=== PATIENT | female | born 1990 | race Caucasian/White ===

== ENCOUNTER 2017-11-14 15:23 | Emergency (ER) | payer BC, OTHER ==
[2017-11-14 15:54] VITALS: BP 123/82
--- NOTE | 2017-11-14 16:07 | UC ---
General HPI - HPI Summary HPI Summary: Right thumb stuck by suture needle that was wrapped in vacuum clear bristle bar- - - History of Current Complaint Chief Complaint: UCWounds Stated Complaint: NEEDLE STICK EXPOSURE Time Seen by Provider: 11/14/17 15:33 Hx Obtained From: Patient Hx Last Menstrual Period: few months ago, in depo Onset/Duration: Sudden Onset, Lasting Days - 1 Timing: Constant Onset Severity: Mild Current Severity: None - Allergy/Home Medications Allergies/Adverse Reactions: Allergies Allergy/AdvReac Type Severity Reaction Status Date / Time Penicillins [PCN] Allergy Rash Verified 11/14/17 15:53 Home Medications: Home Medications Medroxyprogesterone Acetate (A [Depo-Provera] 400 mg IM MONTHLY 11/14/17 [ History Confirmed 11/14/17] PMH/Surg Hx/FS Hx/Imm Hx Previously Healthy: Yes - Surgical History Surgical History: Yes Surgery Procedure, Year, and Place: ectopic - Family History Known Family History: Positive: None - Social History Occupation: Employed Full-time Lives: With Family Alcohol Use: Occasionally Substance Use Type: None Smoking Status (MU): Light Every Day Tobacco Smoker Amount Used/How Often: 1/2 PPD - Immunization History Most Recent Influenza Vaccination: none Most Recent Tetanus Shot: unknown Review of Systems Constitutional: Negative Skin: Negative Eyes: Negative ENT: Negative Respiratory: Negative Cardiovascular: Negative Gastrointestinal: Negative Genitourinary: Negative Motor: Negative Neurovascular: Negative Musculoskeletal: Negative Neurological: Negative Psychological: Negative Is Patient Immunocompromised?: No All Other Systems Reviewed And Are Negative: Yes Physical Exam Triage Information Reviewed: Yes Appearance: Well-Appearing, No Pain Distress, Well-Nourished Vital Signs: Initial Vital Signs Temp 98.1 F 11/14/17 15:49 Pulse 95 11/14/17 15:49 Resp 16 11/14/17 15:49 BP 123/82 11/14/17 15:49 Pulse Ox 100 11/14/17 15:49 Vital Signs Reviewed: Yes Eye Exam: Normal Eyes: Positive: Conjunctiva Clear ENT Exam: Normal ENT: Positive: Normal ENT inspection, Hearing grossly normal, Pharynx normal. Negative: Nasal congestion, Tonsillar swelling, Tonsillar exudate, Trismus, Hoarse voice Dental Exam: Normal Neck exam: Normal Neck: Positive: Supple, Nontender Respiratory Exam: Normal Respiratory: Positive: Chest non-tender, Lungs clear, Normal breath sounds, No respiratory distress, No accessory muscle use Cardiovascular Exam: Normal Cardiovascular: Positive: RRR, No Murmur, Pulses Normal, Brisk Capillary Refill Musculoskeletal Exam: Normal Musculoskeletal: Positive: Strength Intact, ROM Intact, No Edema Neurological Exam: Normal Neurological: Positive: Alert, Muscle Tone Normal Psychological Exam: Normal Psychological: Positive: Normal Response To Family Skin Exam: Normal Re-Evaluation - Re-Evaluation First Eval Change: Unchanged - patient washed her hands after the exposure and 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
[2017-11-14] MEDS ORDERED: Tetan/Diph/Pertus SYR(Tdap)* 0.5 ML SYR(BOOSTRIX) use SYR IM ONE (16:18)
== END 2017-11-14 16:37 | disposition home or self-care (01) ==
LOC: UCEAST 15:23
DX: S61.031A Puncture wound without foreign body of right thumb without damage to nail, initial encounter (principal); F17.290 Nicotine dependence, other tobacco product, uncomplicated; Z88.0 Allergy status to penicillin; Z23 Encounter for immunization; W46.0XXA Contact with hypodermic needle, initial encounter; Y92.9 Unspecified place or not applicable
CPT/HCPCS: 90471; 90715; 99202; G0463

== ENCOUNTER 2017-11-18 15:27 | Emergency (ER) | payer BC, OTHER ==
[2017-11-18 16:36] VITALS: BP 109/69
--- NOTE | 2017-11-18 16:43 | UC ---
UC Dental HPI - HPI Summary HPI Summary: Left side of mouth dental pain--ear hurts as well - History of Current Complaint Hx Obtained From: Patient Hx Last Menstrual Period: depo ?: No Onset/Duration: Gradual Onset, Lasting Days Severity: Moderate Alleviating Factor(s): Topical Meds Related History: Previous Dental Care on Same Tooth, Swelling <Chely Perea - Last Filed: 11/22/17 18:17> <Cadence Archer - Last Filed: 11/23/17 16:16> - History of Current Complaint Chief Complaint: UCGeneralIllness Stated Complaint: dental pain Time Seen by Provider: 11/18/17 16:28 - Allergies/Home Medications Allergies/Adverse Reactions: Allergies Allergy/AdvReac Type Severity Reaction Status Date / Time Penicillins [PCN] Allergy Rash Verified 11/14/17 15:53 PMH/Surg Hx/FS Hx/Imm Hx Previously Healthy: Yes - Surgical History Surgical History: Yes Surgery Procedure, Year, and Place: ectopic - Family History Known Family History: Positive: None - Social History 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 [employer] Lives: With Family Alcohol Use: Occasionally Substance Use Type: None Smoking Status (MU): Light Every Day Tobacco Smoker Amount Used/How Often: 1/2 PPD - Immunization History Most Recent Influenza Vaccination: none Most Recent Tetanus Shot: unknown <Chely Perea - Last Filed: 11/22/17 18:17> Review of Systems Constitutional: Negative Skin: Negative Eyes: Negative ENT: Dental Pain Respiratory: Negative Cardiovascular: Negative Gastrointestinal: Negative Genitourinary: Negative Motor: Negative Neurovascular: Negative Musculoskeletal: Negative Neurological: Negative Psychological: Negative Is Patient Immunocompromised?: No All Other Systems Reviewed And Are Negative: Yes <Chely Perea - Last Filed: 11/22/17 18:17> Physical Exam Triage Information Reviewed: Yes Appearance: Well-Appearing, No Pain Distress, Thin Vital Signs: Initial Vital Signs Temp 98.9 F 11/18/17 16:28 Pulse 108 11/18/17 16:28 Resp 16 11/18/17 16:28 BP 109/69 11/18/17 16:28 Pulse Ox 97 11/18/17 16:28 Vital Signs Reviewed: Yes Eye Exam: Normal Eyes: Positive: Conjunctiva Clear ENT Exam: Normal ENT: Positive: Pharynx normal, TMs normal, Dental tenderness, Uvula midline. Negative: Nasal congestion, Nasal drainage, Tonsillar swelling, Tonsillar exudate, Trismus, Muffled voice, Hoarse voice, Sinus tenderness Dental Exam: Normal Dental: Positive: Percussion Tenderness @ - left upper and lower molars, Gross Decay/Caries @, Abscess @ Neck exam: Normal Neck: Positive: Supple, Nontender Respiratory Exam: Normal Respiratory: Positive: Chest non-tender, Lungs clear, Normal breath sounds, No respiratory distress, No accessory muscle use Cardiovascular Exam: Normal Cardiovascular: Positive: RRR, No Murmur, Pulses Normal, Brisk Capillary Refill Musculoskeletal Exam: Normal Musculoskeletal: Positive: Strength Intact, ROM Intact, No Edema Neurological Exam: Normal Neurological: Positive: Alert, Muscle Tone Normal Psychological Exam: Normal Skin Exam: Normal <Chely Perea - Last Filed: 11/22/17 18:17> Vital Signs: Initial Vital Signs Temp 98.9 F 11/18/17 16:28 Pulse 108 11/18/17 16:28 Resp 16 11/18/17 16:28 BP 109/69 11/18/17 16:28 Pulse Ox 97 11/18/17 16:28 <Cadence Archer - Last Filed: 11/23/17 16:16> Dental Complaint Course/Dx - Course Course Of Treatment: pain med warm compress, peridex mouth rince, clindamycin follow with dentist this week - Differential Dx/Diagnosis Provider Diagnoses: upper and lower molar left side of mouth decayed and abscess <Chely Perea - Last Filed: 11/22/17 18:17> Discharge <Chely Perea - Last Filed: 11/22/17 18:17> <Cadence Archer - Last Filed: 11/23/17 16:16> - Discharge Plan Condition: Stable Disposition: HOME Prescriptions: Chlorhexidine MW 0.12% 473ML* [Peridex Mouth Wash 0.12%*] 15 ml MT BID #473 ml Clindamycin Cap(NF) [Clindamycin Cap 300 mg Cap(NF)] 300 mg PO Q6H #40 cap Ibuprofen TAB* [Motrin TAB* 600 MG] 600 mg PO Q6H PRN #40 tab PRN Reason: Pain traMADol TAB* [Ultram*] 50 mg PO Q6HR PRN #20 tab MDD 4 PRN Reason: pain Patient Education Materials: Dental Abscess (ED) Referrals: [facility] [Provider Group] - As Soon As Possible Simran Cordon MD [Primary Care Provider] - Additional Instructions: Follow with Dentist MADIHA Attestation Statement User Type: Provider - I was available for consult. This patient was seen by the TIANA. The patient was not presented to, seen by, or examined by me. -Iza <Cadence Archer - Last Filed: 11/23/17 16:16>
== END 2017-11-18 17:09 | disposition home or self-care (01) ==
LOC: UCEAST 15:27
DX: K02.9 Dental caries, unspecified (principal); K04.7 Periapical abscess without sinus; Z88.0 Allergy status to penicillin; F17.210 Nicotine dependence, cigarettes, uncomplicated
CPT/HCPCS: 99212; G0463

== ENCOUNTER 2019-07-27 18:39 | Emergency (ER) | payer BC ==
[2019-07-27 19:56] VITALS: BP 114/83
--- NOTE | 2019-07-27 20:25 | UC ---
Skin Complaint HPI - HPI Summary HPI Summary: 28-year-old female who had an itchy area on her left lower abdomen, scratched at it and then it developed into a round reddened area. She is unsure of what bit her or stung her. She states she did not feel like it was a bee sting. - History of Current Complaint Chief Complaint: UCSkin Time Seen by Provider: 07/27/19 20:25 Stated Complaint: SKIN CONCERN Hx Obtained From: Patient Hx Last Menstrual Period: depo ?: No Onset/Duration: Sudden Onset Skin Exposure Onset/Duration: Days Ago - Found a red area one day ago. Timing: Constant Onset Severity: Mild Current Severity: Mild Pain Intensity: 0 Location: Other - Left lower abdomen Character: Pruritus, Redness Aggravating Factor(s): Nothing Alleviating Factor(s): Nothing Associated Signs & Symptoms: Positive: Rash, Tenderness - Allergy/Home Medications Allergies/Adverse Reactions: Allergies Allergy/AdvReac Type Severity Reaction Status Date / Time Penicillins Allergy Rash Verified 07/27/19 19:57 Home Medications: Home Medications Multivitamin [Multivitamins] 1 cap PO DAILY 07/27/19 [History Confirmed 07/27/19 ] PMH/Surg Hx/FS Hx/Imm Hx Previously Healthy: Yes - Surgical History Surgical History: Yes Surgery Procedure, Year, and Place: ectopic - Family History Known Family History: Positive: None - Social History Alcohol Use: Occasionally Substance Use Type: None Smoking Status (MU): Never Smoked Tobacco Amount Used/How Often: 1/2 PPD - Immunization History Most Recent Influenza Vaccination: none Most Recent Tetanus Shot: unknown Review of Systems All Other Systems Reviewed And Are Negative: Yes Skin: Positive: Rash - Patient had an itchy area to her left lower abdomen a couple days ago and yesterday noticed redness and tenderness. Is Patient Immunocompromised?: No Physical Exam Triage Information Reviewed: Yes Appearance: Well-Appearing, No Pain Distress, Well-Nourished Vital Signs: Initial Vital Signs Temp 98.7 F 07/27/19 19:51 Pulse 90 07/27/19 19:51 Resp 16 07/27/19 19:51 BP 114/83 07/27/19 19:51 Pulse Ox 100 07/27/19 19:51 Vital Signs Reviewed: Yes Skin: Positive: Other - There is a reddened area left lower abdomen approximately 2.0 cm in diameter tender on palpation. It does have a central small dark area which I attempted to remove to see if that was the head of the tick but it's soft, more like a scab, therefore I don't believe it's a tick bite. Course/Dx - Course Course Of Treatment: The patient is comfortable here. I don't believe the head of the tick is still embedded however because of the nature of the redness and the history the patient gave I am going to give her doxycycline 200 mg by mouth here as prophylaxis against Lyme disease. They're to follow-up with her primary care provider if any worsening symptoms. The mother and patient are agreeable to this plan of action. - Diagnoses Provider Diagnosis: Insect bite Discharge ED - Sign-Out/Discharge Documenting (check all that apply): Patient Departure All imaging exams completed and their final reports reviewed: No Studies - Discharge Plan Condition: Good Disposition: HOME Patient Education Materials: Tick Bite (ED) Referrals: Simran Cordon MD [Primary Care Provider] - Additional Instructions: You can apply hydrocortisone cream to the area 2 or 3 times a day. Watch for any worsening symptoms such as fever, chills increased redness and swelling. Apply ice to the sore area. You may take Benadryl every 6 hours as needed over the next one or 2 days. Follow-up with your primary care provider as needed. - Billing Disposition and Condition Condition: GOOD Disposition: Home
[2019-07-27] MEDS ORDERED: DOXYcycline CAP(*) 100 MG PO ONE (20:35)
== END 2019-07-27 20:45 | disposition home or self-care (01) ==
LOC: UCCORT 18:39
DX: S30.861A Insect bite (nonvenomous) of abdominal wall, initial encounter (principal); W57.XXXA Bitten or stung by nonvenomous insect and other nonvenomous arthropods, initial encounter; Y92.9 Unspecified place or not applicable; Z88.0 Allergy status to penicillin
CPT/HCPCS: 99212; A9270-GY; G0463